=== PATIENT | male | born 1990 | race Caucasian/White ===

== ENCOUNTER 2021-04-30 03:14 | Emergency (ER) | payer SELFPAY ==
[~2021-04-30] VITALS: Ht 175.3 cm; Wt 113.6 kg
[~2021-04-30 03:14] MED LIST: NOCURR
[2021-04-30 03:18] VITALS: BP 129/50
== END 2021-04-30 05:49 | disposition left against medical advice (07) ==
LOC: EMS 03:14
DX: R20.0 Anesthesia of skin (principal); Z53.21 Procedure and treatment not carried out due to patient leaving prior to being seen by health care provider

== ENCOUNTER 2023-02-23 15:54 | Emergency (ER) | payer SELFPAY ==
[~2023-02-23] VITALS: Ht 175.3 cm; Wt 81.0 kg
[2023-02-23] MEDS ORDERED: KETOROLAC TROMETHAMINE 30 MG/ML VIAL IVP ONE (16:15)
[2023-02-23] MEDS ORDERED: METHOCARBAMOL 100 MG/ML 10 ML VIAL IVP ONE (16:15)
[2023-02-23 16:22] LABS: BASOPHILS % (AUTO) 0.1 % (0.0-2.0); EOSINOPHILS % (AUTO) 0 % (1.0-6.0); HEMATOCRIT 44.4 % (41-53); HEMOGLOBIN 14.5 g/dL (13.5-17.5); LYMPHOCYTES # (AUTO) 0.8 K/uL (1.0-4.8); LYMPHOCYTES % (AUTO) 3.9 % (22.0-44.0); MEAN CORPUSCULAR HEMOGLOBIN 30.2 pg (26.0-34.0); MEAN CORPUSCULAR HGB CONC 32.7 G/dL (31.0-37.0); MEAN CORPUSCULAR VOLUME 92 fL (80-100); MONOCYTES # (AUTO) 1.1 K/uL (0.1-1.0); MONOCYTES % (AUTO) 5.2 % (2.0-9.0); NEUTROPHILS # (AUTO) 18.9 K/uL (1.8-7.7); PLATELET COUNT (AUTO) 200 K/uL (150-450); RED BLOOD CELL COUNT(AUTO) 4.81 MIL/uL (4.50-5.90); RED CELL DISTRIBUTION WIDTH 13.8 % (11.5-14.5)
[2023-02-23 16:24] LABS: NEUTROPHILS % (AUTO) 90.8 % (40.0-70.0)
[2023-02-23 16:36] LABS: ANION GAP 10 mmol/L (8-16); CALCIUM, TOTAL 8.8 mg/dL (8.8-10.5); CARBON DIOXIDE 26 mmol/L (22-29); CHLORIDE 99 mmol/L (98-107); CREATININE 0.85 mg/dL (0.60-1.30); GLOMERULAR FILTR. RATE CALC > 60 mL/min (>60); GLUCOSE,RANDOM 125 mg/dL (70-110); POTASSIUM 3.6 mmol/L (3.5-5.1); SODIUM SERUM 135 mmol/L (136-145)
[2023-02-23 16:42] LABS: ALANINE AMINOTRANSFERASE 30 U/L (12-78); ALBUMIN 3.8 g/dL (3.4-5.0); ALKALINE PHOSPHATASE 102 U/L (46-116); ASPARTATE AMINOTRANSFERASE 16 U/L (15-37); BILIRUBIN,TOTAL 0.9 mg/dL (0.1-1.0)
[2023-02-23] MEDS ORDERED: ONDANSETRON HCL 4 MG/2 ML VIAL IVP ONE (17:00)
[2023-02-23] MEDS ORDERED: HYDROmorphone HCL 2 MG/ML SYRINGE IVP ONE (17:00)
[2023-02-23] MEDS ORDERED: LIDOCAINE 1% 10 ML VIAL SQ ONE (18:30)
[2023-02-23] MEDS ORDERED: ACETAMINOPHEN 500 MG TABLET PO ONE (18:45)
[2023-02-23] MEDS ORDERED: ACET-66 PO (18:55)
[2023-02-23 20:05] LABS: APPEARANCE,CSF CLEAR (CLEAR); COLOR,CSF COLORLESS (COLORLESS); CSF TOTAL VOLUME 7.5 mL; CSF TUBE NUMBER 4; LYMPHOCYTES1,CSF 83 %; MONOCYTES1,CSF 17 %; NEUTROPHILS1,CSF 0 %
[2023-02-23 20:06] LABS: GLUCOSE, CSF 79 mg/dL (50-80); TOTAL PROTEIN, CSF 22 mg/dL (15-45)
[2023-02-23] MEDS ORDERED: HYDROCODONE/ACETAMINOPHEN 5-325 MG TABLET PO ONE (20:45)
[2023-02-23] MEDS ORDERED: CARISOPRODOL 350 MG TABLET PO ONE (20:45)
[2023-02-23] MEDS ORDERED: IBUPROFEN 600 MG TABLET PO ONE (20:45)
[2023-02-23] MEDS ORDERED: IBUP-1554 PO (20:50)
[2023-02-23] MEDS ORDERED: HYDR-4072 PO (20:50)
[2023-02-23] MEDS ORDERED: CARI-493 PO (20:50)
[2023-02-23 22:09] VITALS: BP 129/78; PULSE 82; RESP 18; TEMP 99.3
== END 2023-02-23 22:19 | disposition home or self-care (01) ==
LOC: EMS 15:56
DX: S13.4XXA Sprain of ligaments of cervical spine, initial encounter (principal); G89.29 Other chronic pain; M54.9 Dorsalgia, unspecified; F17.210 Nicotine dependence, cigarettes, uncomplicated; F10.90 Alcohol use, unspecified, uncomplicated; F12.90 Cannabis use, unspecified, uncomplicated; F14.90 Cocaine use, unspecified, uncomplicated; R05.9 Cough, unspecified; J02.9 Acute pharyngitis, unspecified; X58.XXXA Exposure to other specified factors, initial encounter; Y93.89 Activity, other specified; Y92.89 Other specified places as the place of occurrence of the external cause; Y99.8 Other external cause status
CPT/HCPCS: 99291; 62270; 72141; 70450; 96374; 96375; 80053; 87205; 82945; 84157; 85025; 89051; 36415; 87075; 87070; 72125; J1170; J1885; J2405; J2800; J3490

== ENCOUNTER 2023-02-25 08:01 | Emergency (ER) | payer SELFPAY ==
[~2023-02-25] VITALS: Ht 175.3 cm; Wt 81.8 kg
[~2023-02-25 08:01] MED LIST changes: +CARI-493 PO; +HYDR-4072 PO; +IBUP-1554 PO; -NOCURR
[2023-02-25 08:05] VITALS: TEMP 98
[2023-02-25] MEDS ORDERED: ONDANSETRON HCL 4 MG/2 ML VIAL IVP ONE (08:15)
[2023-02-25] MEDS ORDERED: MORPHINE SULFATE 4 MG/ML SYRINGE IVP ONE (08:15)
[2023-02-25] MEDS ORDERED: SODIUM CHLORIDE 0.9% 1,000 ML IV ONE ×2 (08:15→11:45)
[2023-02-25 08:25] LABS: BASOPHILS % (AUTO) 0.4 % (0.0-2.0); EOSINOPHILS % (AUTO) 0.2 % (1.0-6.0); HEMATOCRIT 42.5 % (41-53); HEMOGLOBIN 14.3 g/dL (13.5-17.5); LYMPHOCYTES # (AUTO) 2.5 K/uL (1.0-4.8); LYMPHOCYTES % (AUTO) 12.9 % (22.0-44.0); MEAN CORPUSCULAR HEMOGLOBIN 30.9 pg (26.0-34.0); MEAN CORPUSCULAR HGB CONC 33.6 G/dL (31.0-37.0); MEAN CORPUSCULAR VOLUME 92 fL (80-100); MONOCYTES # (AUTO) 1.7 K/uL (0.1-1.0); MONOCYTES % (AUTO) 8.4 % (2.0-9.0); NEUTROPHILS # (AUTO) 15.4 K/uL (1.8-7.7); NEUTROPHILS % (AUTO) 78.1 % (40.0-70.0); PLATELET COUNT (AUTO) 205 K/uL (150-450); RED BLOOD CELL COUNT(AUTO) 4.62 MIL/uL (4.50-5.90); RED CELL DISTRIBUTION WIDTH 13.3 % (11.5-14.5)
[2023-02-25 08:28] LABS: APPEARANCE,URINE CLEAR (CLEAR); BILIRUBIN,URINE NEGATIVE (NEGATIVE); GLUCOSE, URINE (UA) TRACE mg/dL (NEGATIVE); KETONES,URINE 40-60 mg/dL (NEGATIVE); LEUKOCYTE ESTERASE ,URINE SMALL (NEGATIVE); NITRATE,URINE NEGATIVE (NEGATIVE); OCCULT BLOOD,URINE TRACE (NEGATIVE); PROTEIN,URINE 30-70 mg/dL (NEGATIVE); SPECIFIC GRAVITIY, URINE 1.023 (1.003-1.030)
[2023-02-25 08:29] LABS: COVID AG,FIA SOURCE NASAL SWAB
[2023-02-25 08:32] LABS: AMPHET/METH SCREEN,URINE NEGATIVE (NEGATIVE); BARBITURATE SCREEN, URINE NEGATIVE (NEGATIVE); BENZODIAZEPINES SCREEN,URINE NEGATIVE (NEGATIVE); CANNABINOID SCREEN,URINE POSITIVE (NEGATIVE); COCAINE SCREEN,URINE NEGATIVE (NEGATIVE); METHADONE SCREEN, URINE NEGATIVE (NEGATIVE); OPIATE SCREEN,URINE POSITIVE (NEGATIVE); PHENCYCLIDINE SCREEN,URINE NEGATIVE (NEGATIVE)
[2023-02-25] MEDS ORDERED: SODIUM CHLORIDE 0.9% 100 ML ONE (08:33)
[2023-02-25] MEDS ORDERED: IOHEXOL 350 MG/ML 100 ML VIAL ONE ×2 (08:33→08:52)
[2023-02-25 08:35] LABS: ANION GAP 16 mmol/L (8-16); CALCIUM, TOTAL 9.2 mg/dL (8.8-10.5); CARBON DIOXIDE 20 mmol/L (22-29); CHLORIDE 102 mmol/L (98-107); CREATININE 0.81 mg/dL (0.60-1.30); GLOMERULAR FILTR. RATE CALC > 60 mL/min (>60); GLUCOSE,RANDOM 149 mg/dL (70-110); POTASSIUM 3.1 mmol/L (3.5-5.1); SODIUM SERUM 138 mmol/L (136-145)
[2023-02-25 08:41] LABS: ALANINE AMINOTRANSFERASE 24 U/L (12-78); ALBUMIN 3.5 g/dL (3.4-5.0); ALKALINE PHOSPHATASE 108 U/L (46-116); ASPARTATE AMINOTRANSFERASE 16 U/L (15-37); BILIRUBIN,TOTAL 0.8 mg/dL (0.1-1.0); LIPASE 17 U/L (16-77); TOTAL PROTEIN, SERUM 7.9 g/dL (6.4-8.2)
[2023-02-25 08:47] LABS: BACTERIA,URINE Few /HPF (None Seen); RBC,URINE None Seen /HPF (0-2)
[2023-02-25 09:08] LABS: RAPID GROUP A STREP NEGATIVE (NEGATIVE)
[2023-02-25 09:10] LABS: INFLUENZA TYPE A NEGATIVE FOR TYPE A (NEGATIVE); INFLUENZA TYPE B NEGATIVE FOR TYPE B (NEGATIVE)
[2023-02-25] MEDS ORDERED: MetroNIDAZOLE 500 MG/NACL 100 ML IV ONE (11:30)
[2023-02-25] MEDS ORDERED: CefTRIAXone SODIUM 2 GM in DEXTROSE 5%-WATER 50 ML IV ONE (11:30)
[2023-02-25] MEDS ORDERED: POTASSIUM CHL 10 MEQ/WATER 50 ML IV ONE (11:45)
[2023-02-25] MEDS ORDERED: DEXAMETHASONE SOD PHOS 4 MG/ML 5 ML VIAL IVP ONE (15:30)
[2023-02-25] MEDS ORDERED: AMOX1TAB16 PO (15:36)
[2023-02-25 15:56] VITALS: BP 125/74; PULSE 76; RESP 16
== END 2023-02-25 16:59 | disposition left against medical advice (07) ==
LOC: EMS 08:07
DX: J36 Peritonsillar abscess (principal); R10.9 Unspecified abdominal pain; R11.2 Nausea with vomiting, unspecified; E87.6 Hypokalemia; G89.29 Other chronic pain; F12.90 Cannabis use, unspecified, uncomplicated; F14.90 Cocaine use, unspecified, uncomplicated; F17.210 Nicotine dependence, cigarettes, uncomplicated; Z20.822 Contact with and (suspected) exposure to COVID-19
CPT/HCPCS: 99285; 70491; 87426; 80053; 83690; 85025; 87430; 87804; 36415; 87086; 87186; 74177; 81001; 80307 ×2; J0696; J1100; J3490; J2270; J2405; Q9967; J7060; J3480; J7030; J7050